=== PATIENT | male | born 1970 | race Caucasian/White ===

== ENCOUNTER 2017-01-11 19:46 | Emergency (ER) | payer BC ==
[2017-01-11] MEDS ORDERED: Clindamycin CAP* 150 MG PO ONE (20:20)
--- NOTE | 2017-01-11 20:20 | UC ---
UC Dental HPI - HPI Summary HPI Summary: right lower jaw swollen and painful for 2 days no fever dental pain tooth #28 - History of Current Complaint Chief Complaint: UCDentalProblem Stated Complaint: DENTAL COMPLAINT Time Seen by Provider: 01/11/17 20:11 Hx Obtained From: Patient Onset/Duration: Gradual Onset, Lasting Days - 2, Still Present Severity: Moderate Pain Intensity: 6 Pain Scale Used: 0-10 Numeric Aggravating: Chewing - Allergies/Home Medications Allergies/Adverse Reactions: Allergies Allergy/AdvReac Type Severity Reaction Status Date / Time Azithromycin Allergy Hives Verified 01/11/17 20:07 Home Medications: Home Medications Ibuprofen TAB* [Advil TAB*] 400 mg PO PRN 01/11/17 [History] Naproxen TAB* [Naprosyn 250 mg TAB*] 500 mg PO PRN 01/11/17 [History] PMH/Surg Hx/FS Hx/Imm Hx Previously Healthy: Yes - Surgical History Surgical History: Yes Surgery Procedure, Year, and Place: appendectomy - Family History Known Family History: Positive: None - no reported cardio vascular issues in family lineage - Social History Occupation: Employed Full-time Lives: With Family Alcohol Use: Daily Alcohol Amount: 2 BEERS/DAY Substance Use Type: Marijuana Smoking Status (MU): Current Every Day Smoker Type: Cigarettes Amount Used/How Often: 1/2 PPD Length of Time of Smoking/Using Tobacco: 35 Have You Smoked in the Last Year: Yes Review of Systems Constitutional: Negative Skin: Negative Eyes: Negative ENT: Dental Pain Respiratory: Negative Cardiovascular: Negative Gastrointestinal: Negative Genitourinary: Negative Motor: Negative Neurovascular: Negative Musculoskeletal: Negative Neurological: Negative Psychological: Negative All Other Systems Reviewed And Are Negative: Yes Physical Exam Triage Information Reviewed: Yes Appearance: Well-Appearing, Well-Nourished, Pain Distress Vital Signs: Initial Vital Signs Temp 98.7 F 01/11/17 20:04 Pulse 84 01/11/17 20:04 Resp 16 01/11/17 20:04 BP 117/76 01/11/17 20:04 Pulse Ox 96 01/11/17 20:04 Vital Signs Reviewed: Yes Eye Exam: Normal Eyes: Positive: Conjunctiva Clear ENT Exam: Normal ENT: Positive: Normal ENT inspection, Hearing grossly normal, Pharynx normal, TMs normal. Negative: Nasal congestion, Nasal drainage, Tonsillar swelling, Tonsillar exudate, Trismus, Muffled/hoarse voice Dental Exam: Normal Dental: Positive: Percussion Tenderness @ - right lower jaw, Gross Decay/Caries @, Abscess @ - right lower jaw Neck exam: Normal Neck: Positive: Supple, Nontender Respiratory Exam: Normal Respiratory: Positive: Chest non-tender, Normal breath sounds, No respiratory distress Cardiovascular Exam: Normal Cardiovascular: Positive: RRR, Pulses Normal, Brisk Capillary Refill Musculoskeletal Exam: Normal Musculoskeletal: Positive: Strength Intact, ROM Intact, No Edema Neurological Exam: Normal Neurological: Positive: Alert, Muscle Tone Normal Psychological Exam: Normal Skin Exam: Normal Dental Complaint Course/Dx - Course Course Of Treatment: clindamycin, NSAIDS, nicotine cesation eduction, follow with dentist/free clinic - Differential Dx/Diagnosis Differential Diagnosis/Dx: Dental Abscess, Dental Caries, Fractured Tooth, Odontogenic Pain Provider Diagnoses: dental abscess tooth decay, nicotine dependent Discharge - Discharge Plan Condition: Stable Disposition: HOME Prescriptions: Clindamycin Cap(NF) [Cleocin 300 mg Cap(NF)] 300 mg PO Q6H #40 cap Patient Education Materials: How to Stop Smoking (ED), Dental Abscess (ED) Referrals: [facility] [Provider Group] - 2 Days Additional Instructions: Follow up on Friday with a dental provider or [facility]
== END 2017-01-11 20:35 | disposition home or self-care (01) ==
LOC: UCEAST 19:46
DX: K04.7 Periapical abscess without sinus (principal); F17.210 Nicotine dependence, cigarettes, uncomplicated
CPT/HCPCS: 99212; A9270-GY; G0463

== ENCOUNTER 2019-05-20 09:49 | Emergency (ER) | payer SELFPAY ==
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
[2019-05-20 14:08] LABS: HIV 4th Generation Nonreactive (Nonreactive)
== END 2019-05-20 11:10 | disposition home or self-care (01) ==
LOC: UCEAST 09:49
DX: S46.912A Strain of unspecified muscle, fascia and tendon at shoulder and upper arm level, left arm, initial encounter (principal); M19.012 Primary osteoarthritis, left shoulder; F17.210 Nicotine dependence, cigarettes, uncomplicated; R20.0 Anesthesia of skin; Z88.1 Allergy status to other antibiotic agents; X50.0XXA Overexertion from strenuous movement or load, initial encounter; Y92.811 Bus as the place of occurrence of the external cause
CPT/HCPCS: 36415; 87389; 99211; G0463

== ENCOUNTER 2019-09-24 14:51 | Emergency (ER) | payer BC, OTHER ==
[2019-09-24 15:44] VITALS: BP 150/86
--- NOTE | 2019-09-24 16:21 | UC ---
Skin Complaint HPI - HPI Summary HPI Summary: 49-year-old male comes in with chief complaint of a rash on the left thigh.Appeared to be a bruise there 2 days ago is grossly grown and became red and warm to touch and tender to touch. No known tick bites or other insect bites. No known trauma. No known history of MRSA. No fevers or chills. - History of Current Complaint Chief Complaint: UCLowerExtremity Time Seen by Provider: 09/24/19 16:08 Stated Complaint: BRUISE LEFT LEG Pain Intensity: 8 - Allergy/Home Medications Allergies/Adverse Reactions: Allergies Allergy/AdvReac Type Severity Reaction Status Date / Time azithromycin Allergy Hives Verified 05/20/19 09:56 Home Medications: Home Medications DOXYcycline CAP(*) [DOXYcycline 100MG CAP(*)] 100 mg PO BID #28 cap 09/24/19 [Rx ] PMH/Surg Hx/FS Hx/Imm Hx Previously Healthy: Yes - Surgical History Surgical History: Yes Surgery Procedure, Year, and Place: appendectomy - Family History Known Family History: Positive: None - no reported cardio vascular issues in family lineage - Social History Alcohol Use: Daily Alcohol Amount: 2 BEERS/DAY Substance Use Type: Marijuana Smoking Status (MU): Light Every Day Tobacco Smoker Type: Cigarettes Amount Used/How Often: 1/2 PPD Length of Time of Smoking/Using Tobacco: 35 Have You Smoked in the Last Year: Yes Review of Systems All Other Systems Reviewed And Are Negative: Yes Constitutional: Positive: Negative Skin: Positive: Other - SEE HPI Eyes: Positive: Negative ENT: Positive: Negative Respiratory: Positive: Negative Cardiovascular: Positive: Negative Gastrointestinal: Positive: Negative Motor: Positive: Negative Neurovascular: Positive: Negative Musculoskeletal: Positive: Negative Neurological/Mental Status: Positive: Negative Psychological: Positive: Negative Is Patient Immunocompromised?: No Physical Exam Triage Information Reviewed: Yes Appearance: Well-Appearing, No Pain Distress, Well-Nourished Vital Signs: Initial Vital Signs Temp 98.8 F 09/24/19 15:36 Pulse 88 09/24/19 15:36 Resp 16 09/24/19 15:36 BP 150/86 09/24/19 15:36 Pulse Ox 100 09/24/19 15:36 Vital Signs Reviewed: Yes Eye Exam: Normal Eyes: Positive: Conjunctiva Clear Neck: Positive: Supple Respiratory: Positive: No respiratory distress Musculoskeletal: Positive: Strength Intact, ROM Intact Neurological: Positive: Alert, Muscle Tone Normal Psychological: Positive: Age Appropriate Behavior Skin: Positive: Other - Left medial inner thigh just proximal to the knee joint there is a 10 cm diameter area of erythema. There is some ecchymosis and part of it which is minimally blanching the erythema does wolf. No streaking. No drainage. No obvious foreign body or bite binta. Course/Dx - Course Course Of Treatment: We will treat with doxycycline. Initially the area was reported as a bruise of unknown origin. There is some ecchymosis however the majority of the rash erythematous and consistent with cellulitis. Patient's to get reevaluated if not improving is to go the emergency department if he worsens. - Diagnoses Provider Diagnosis: Cellulitis of left leg Discharge ED - Sign-Out/Discharge Documenting (check all that apply): Patient Departure All imaging exams completed and their final reports reviewed: No Studies - Discharge Plan Condition: Stable Disposition: HOME Prescriptions: DOXYcycline CAP(*) [DOXYcycline 100MG CAP(*)] 100 mg PO BID #28 cap Patient Education Materials: Cellulitis (ED) Referrals: [facility] [address] [Outside] [facility] [place] [facility] [Outside] Additional Instructions: FOLLOW UP WITH YOUR DOCTOR IF NOT COMPLETELY IMPROVED. GO TO THE EMERGENCY DEPARTMENT IF WORSE; SPREAD OF INFECTION, FEVER, YOU FEEL ILL OR ANY QUESTIONS OR CONCERNS. - Billing Disposition and Condition Condition: STABLE Disposition: Home
== END 2019-09-24 16:37 | disposition home or self-care (01) ==
LOC: UCEAST 14:51
DX: L03.116 Cellulitis of left lower limb (principal); Z88.1 Allergy status to other antibiotic agents; F17.210 Nicotine dependence, cigarettes, uncomplicated
CPT/HCPCS: 99211; G0463

== ENCOUNTER 2021-11-28 09:46 | Inpatient (IN) ==
[~2021-11-28 09:46] MED LIST: Buffered Lidocaine 1% SYRIN 1 ml INTRADERM ONE; Famotidine IV 10 MG/ML 2 ml VIAL (20 mg) IV ONE; Lactated Ringers 1000 ml BAG 1,000 ML IV SCH; Scopolamine 1 mg/72hr PATCH TRANSDERM ONE
[2021-11-28] MEDS ORDERED: ceFAZolin 2 GM PREMIX 2 GM/50 ML BAG ONE (10:02)
[2021-11-28] MEDS ORDERED: Scopolamine 1 mg/72hr PATCH ONE (10:02)
[2021-11-28] MEDS ORDERED: Famotidine IV 10 MG/ML 2 ml VIAL (20 mg) ONE (10:03)
[2021-11-28] MEDS ORDERED: Phenylephrine IV 10 MG/ML 1 ml VIAL ONE (12:21)
[2021-11-28] MEDS ORDERED: Lidocaine 1% w EPI 1:200,000 SDV 30 ML VIAL ONE (12:23)
[2021-11-28] MEDS ORDERED: ceFAZolin VIAL VIAL ONE ×2 (12:23→16:59)
[2021-11-28] MEDS ORDERED: Remifentanil 2 MG VIAL ONE ×2 (12:24→15:04)
[2021-11-28] MEDS ORDERED: HYDROmorphone 1 MG/1 ML SYRINGE IV PRN (12:25)
[2021-11-28] MEDS ORDERED: Ondansetron 4 mg VIAL 2 MG/ML 2 ml VIAL IV PRN ×2 (12:25→18:34)
[2021-11-28] MEDS ORDERED: fentaNYL 100 mcg/2 ml 50 MCG/ML VIAL IV PRN (12:25)
[2021-11-28] MEDS ORDERED: fentaNYL 250 mcg/5 ml 50 MCG/ML 5 ml VIAL (250 MCG) ONE (12:29)
[2021-11-28] MEDS ORDERED: Propofol 10 MG/ML 20 ML BTL ONE ×2 (12:30→14:23)
[2021-11-28] MEDS ORDERED: Midazolam 2 mg/2 ml VIAL 1 mg/ml 2 ml VIAL (2 mg) ONE (12:30)
[2021-11-28] MEDS ORDERED: Rocuronium 50 mg VIAL 10 mg/ml 5 ml VIAL (50 mg) ONE (12:33)
[2021-11-28] MEDS ORDERED: Succinylcholine 200 mg VIAL 20 mg/ml 10 ml VIAL (200 mg) ONE (12:33)
[2021-11-28] MEDS ORDERED: HYDROmorphone 0.5 MG/0.5 ML SYRINGE ONE ×2 (13:17→17:28)
[2021-11-28] MEDS ORDERED: Glycopyrrolate IV 0.2 MG/ML 1 ML VIAL ONE (13:20)
[2021-11-28] MEDS ORDERED: Dexamethasone IV 4 MG/ML VIAL 1 ml VIAL ONE (13:56)
[2021-11-28] MEDS ORDERED: EPHEDrine (Pressors) 50 MG/ML VIAL ONE (14:08)
[2021-11-28] MEDS ORDERED: Propofol 10 mg/ml 100 ML BTL 100 ML ONE (15:05)
[2021-11-28] MEDS ORDERED: Ondansetron 4 mg VIAL 2 MG/ML 2 ml VIAL ONE ×2 (15:45→18:19)
[2021-11-28] MEDS ORDERED: HYDROmorphone 1 MG/1 ML SYRINGE ONE (18:19)
[2021-11-28] MEDS ORDERED: HYDROcodone/ACETAMIN 5/325 mg TAB PO PRN ×2 (18:34)
[2021-11-29 11:24] VITALS: BP 130/84
== END 2021-11-29 14:22 | disposition home or self-care (01) | DRG 321 ==
LOC: AA 09:46 → SSU 19:40
PROVIDERS: ADMIT Neurological Surgery; ATTEND Neurological Surgery

== ENCOUNTER 2021-12-05 14:20 | Inpatient (IN) ==
[2021-12-05 19:26] LABS: ABS Basophils 0.1 10^3/ul (0-0.2); ABS Eosinophils 0.1 10^3/ul (0-0.6); ABS Lymphocytes 2.5 10^3/ul (1.0-4.8); ABS Monocytes 0.7 10^3/ul (0-0.8); Eosinophil % 1.9 %; Hematocrit 41 % (42-52); Hemoglobin 13.7 g/dL (14.0-18.0); Lymphocyte % 33.5 %; Mean Corpuscular HGB Conc 34 g/dL (31-36); Mean Corpuscular Hemoglobin 29 pg (27-31); Mean Corpuscular Volume 87 fL (80-94); Mean Platelet Volume 8.1 fL (7.4-10.4); Nucleated Red Blood Cells % 0.1; Platelet Count 224 10^3/uL (150-450); Red Blood Count 4.68 10^6 /uL (4.18-5.48); Red Cell Distribution Width 13 % (10-15); White Blood Count 7.4 10^3/uL (3.5-10.8)
[2021-12-05] MEDS ORDERED: Magnesium Hydroxide LIQ 30 ML UDC PO PRN (19:45)
[2021-12-05] MEDS ORDERED: Acetaminophen IV 1 GM/100ML 100 ML IV PRN (19:49)
[2021-12-05] MEDS ORDERED: Morphine 2 MG/ML SYRINGE IV PRN (19:49)
[2021-12-05 19:51] LABS: Activated Partial Thrombo Time 36.4 seconds (26.0-38.0); INR 1.23 (0.86-1.15)
[2021-12-05 20:05] LABS: Albumin/Globulin Ratio 1.8 (1-3); Calcium 9.1 mg/dL (8.6-10.3); Globulin 2.2 g/dL (2-4); Potassium 4.1 mmol/L (3.5-5.0); Total Bilirubin 0.4 mg/dL (0.2-1.0); Total Protein 6.2 g/dL (6.4-8.9); eGFR CKD-EPI 115.4 (>60)
[2021-12-05] MEDS: Heparin 5000 UNITS/ML 1 mL VIAL SUBCUT SCH (22:16)
[2021-12-05] MEDS: Dexamethasone IV 4 MG/ML VIAL 1 ml VIAL IV SLOW PU SCH (22:17)
[2021-12-06 07:01] LABS: ABS Lymphocytes 1.3 10^3/ul (1.0-4.8); ABS Monocytes 0.3 10^3/ul (0-0.8); ABS Neutrophils 3.3 10^3/ul (1.5-7.7); Eosinophil % 0.1 %; Hematocrit 40 % (42-52); Hemoglobin 13.7 g/dL (14.0-18.0); Lymphocyte % 26.9 %; Mean Corpuscular HGB Conc 34 g/dL (31-36); Mean Corpuscular Hemoglobin 29 pg (27-31); Mean Corpuscular Volume 86 fL (80-94); Mean Platelet Volume 8.6 fL (7.4-10.4); Platelet Count 227 10^3/uL (150-450); Red Blood Count 4.67 10^6 /uL (4.18-5.48); Red Cell Distribution Width 13 % (10-15)
[2021-12-06 07:39] LABS: INR 1.2 (0.86-1.15)
[2021-12-06] MEDS: Heparin 5000 UNITS/ML 1 mL VIAL SUBCUT SCH ×2 (07:49→20:30)
[2021-12-06] MEDS: Dexamethasone IV 4 MG/ML VIAL 1 ml VIAL IV SLOW PU SCH ×3 (07:55→21:57)
[2021-12-06 07:58] LABS: Albumin 3.9 g/dL (3.2-5.2); Albumin/Globulin Ratio 1.7 (1-3); Calcium 9.2 mg/dL (8.6-10.3); Globulin 2.3 g/dL (2-4); Potassium 4.3 mmol/L (3.5-5.0); Total Bilirubin 0.6 mg/dL (0.2-1.0); Total Protein 6.2 g/dL (6.4-8.9); eGFR CKD-EPI 115.4 (>60)
[2021-12-06] MEDS ORDERED: ceFAZolin 2 GM in NS PREMIX 2 GM/100 ML BAG IVPB ONE (08:09)
[2021-12-06] MEDS ORDERED: Bupivacaine 0.25% w/EPI 10 ML SDV ONE (08:36)
[2021-12-06] MEDS ORDERED: ceFAZolin VIAL VIAL ONE (08:37)
[2021-12-06] MEDS ORDERED: HYDROmorphone 1 MG/1 ML SYRINGE IV PRN (08:51)
[2021-12-06] MEDS ORDERED: Naloxone 0.4 mg VIAL 0.4 mg/ml 1 ml VIAL IV PRN (08:51)
[2021-12-06] MEDS ORDERED: Prochlorperazine 5 mg/ml 2 ml VIAL (10 mg) IV PRN (08:51)
[2021-12-06] MEDS ORDERED: fentaNYL 250 mcg/5 ml 50 MCG/ML 5 ml VIAL (250 MCG) ONE (09:02)
[2021-12-06] MEDS ORDERED: Lidocaine 2% PF 10 ML AMP (OR) ONE (09:02)
[2021-12-06] MEDS ORDERED: Midazolam 2 mg/2 ml VIAL 1 mg/ml 2 ml VIAL (2 mg) ONE (09:02)
[2021-12-06] MEDS ORDERED: Propofol 10 MG/ML 20 ML BTL ONE (09:02)
[2021-12-06] MEDS ORDERED: Artificial Tear OPHTH.OINT 3.5 GM ONE (09:07)
[2021-12-06] MEDS ORDERED: Propofol 10 mg/ml 100 ML BTL 0 ML ONE (09:08)
[2021-12-06] MEDS ORDERED: BUPIVACAINE **LIPOSOME/PF 13.3 MG/ML (266MG/ 20ML) VIAL (RESTRICTED) INFIL ONE (10:00)
[2021-12-06] MEDS ORDERED: Rocuronium 50 mg VIAL 10 mg/ml 5 ml VIAL (50 mg) ONE ×2 (10:04→14:13)
[2021-12-06] MEDS ORDERED: Phenylephrine IV 10 MG/ML 1 ml VIAL ONE (10:45)
[2021-12-06] MEDS ORDERED: Dexamethasone IV 4 MG/ML VIAL 1 ml VIAL ONE ×2 (11:13→11:18)
[2021-12-06] MEDS ORDERED: HYDROmorphone 0.5 MG/0.5 ML SYRINGE ONE (12:01)
[2021-12-06] MEDS ORDERED: Desflurane 240 ML INH ONE (12:20)
[2021-12-06] MEDS ORDERED: Ketamine HCL 50 mg/ml 10 ml VIAL (500 MG) ONE (13:29)
[2021-12-06] MEDS ORDERED: Prochlorperazine 5 mg/ml 2 ml VIAL (10 mg) ONE (16:06)
[2021-12-07] MEDS ORDERED: Morphine 2 MG/ML SYRINGE IV PRN (00:26)
[2021-12-07] MEDS ORDERED: Ondansetron 4 mg VIAL 2 MG/ML 2 ml VIAL IV PRN (00:27)
[2021-12-07] MEDS: Dexamethasone IV 4 MG/ML VIAL 1 ml VIAL IV SLOW PU SCH ×3 (04:53→21:18)
[2021-12-07 06:15] LABS: ABS Lymphocytes 1.5 10^3/ul (1.0-4.8); ABS Monocytes 1.1 10^3/ul (0-0.8); Hematocrit 37 % (42-52); Hemoglobin 12.5 g/dL (14.0-18.0); Mean Corpuscular HGB Conc 34 g/dL (31-36); Mean Corpuscular Hemoglobin 29 pg (27-31); Mean Corpuscular Volume 87 fL (80-94); Mean Platelet Volume 8.9 fL (7.4-10.4); Platelet Count 241 10^3/uL (150-450); Red Blood Count 4.27 10^6 /uL (4.18-5.48); Red Cell Distribution Width 13 % (10-15); White Blood Count 12.6 10^3/uL (3.5-10.8)
[2021-12-07 06:27] LABS: Calcium 9.1 mg/dL (8.6-10.3); Magnesium 2.1 mg/dL (1.9-2.7); Potassium 3.9 mmol/L (3.5-5.0)
[2021-12-07] MEDS: HYDROcodone/ACETAMIN 5/325 mg TAB PO PRN ×4 (09:13→22:22)
[2021-12-07] MEDS ORDERED: Senna TAB 8.6 mg TAB PO PRN (10:14)
[2021-12-07] MEDS ORDERED: Polyethylene Glycol 3350 17 GM PACKET PO PRN (10:14)
[2021-12-08] MEDS: HYDROcodone/ACETAMIN 5/325 mg TAB PO PRN ×4 (04:39→18:39)
[2021-12-08 05:49] LABS: ABS Lymphocytes 1.7 10^3/ul (1.0-4.8); ABS Monocytes 1.3 10^3/ul (0-0.8); ABS Neutrophils 9.5 10^3/ul (1.5-7.7); Hematocrit 38 % (42-52); Hemoglobin 12.4 g/dL (14.0-18.0); Lymphocyte % 13.4 %; Mean Corpuscular HGB Conc 33 g/dL (31-36); Mean Corpuscular Hemoglobin 29 pg (27-31); Mean Corpuscular Volume 88 fL (80-94); Mean Platelet Volume 8.9 fL (7.4-10.4); Platelet Count 229 10^3/uL (150-450); Red Blood Count 4.27 10^6 /uL (4.18-5.48); Red Cell Distribution Width 13 % (10-15); White Blood Count 12.5 10^3/uL (3.5-10.8)
[2021-12-08 06:19] LABS: Calcium 9.1 mg/dL (8.6-10.3); Magnesium 2.2 mg/dL (1.9-2.7); Potassium 4.5 mmol/L (3.5-5.0); eGFR CKD-EPI 118.5 (>60)
[2021-12-08 09:14] LABS: Activated Partial Thrombo Time 30.1 seconds (26.0-38.0); INR 1.14 (0.86-1.15)
[2021-12-08] MEDS: Dexamethasone IV 4 MG/ML VIAL 1 ml VIAL IV SLOW PU SCH ×2 (09:51→21:57)
[2021-12-08] MEDS: Heparin 5000 UNITS/ML 1 mL VIAL SUBCUT SCH ×3 (09:51→21:57)
[2021-12-09] MEDS: Heparin 5000 UNITS/ML 1 mL VIAL SUBCUT SCH (06:30)
[2021-12-09] MEDS: HYDROcodone/ACETAMIN 5/325 mg TAB PO PRN ×2 (06:32→10:57)
[2021-12-09 07:42] VITALS: BP 125/84
[2021-12-09] MEDS ORDERED: Dexamethasone IV 4 MG/ML VIAL 1 ml VIAL IV SLOW PU SCH (09:00)
== END 2021-12-09 11:30 | disposition home or self-care (01) | DRG 321 ==
LOC: ED 14:20 → EDHOLD 19:57 → SUATTDRO 19:57 → SSU 12-06 00:49
PROVIDERS: ADMIT Hospitalist; ATTEND Internal Medicine